=== PATIENT | female | born 1990 | race Two or more races ===

== ENCOUNTER 2021-04-27 14:38 | Emergency (ER) | payer SELFPAY ==
[~2021-04-27] VITALS: Ht 162.6 cm; Wt 61.7 kg
--- NOTE | 2021-04-27 14:41 | NUR ---
PT [id number] ACCOMPANIED BY PD PER EMS REPORT, PT WAS AT INTERSECTION, BYSTANDER CALLED 911. PT WAS NOT RESPONDING VERBALLY TO EMS AND PD. UPON ARRIVAL PT NODS TO BABSIC QUESTIONS, DOT NOT SPECIFY HER COMPLAINS AND NOT TELLING STAFF HER NAME. PLACED ON MONITOR. STABLE VITALS. AWAITING MD MCPHERSON.
--- NOTE | 2021-04-27 14:42 | NUR ---
DR HUANG AT BEDSIDE FOR EVAL.
[2021-04-27 15:51] LABS: CALCIUM, SERUM 9.3 mg/dL (8.5-10.1); CARBON DIOXIDE 23 mmol/L (21-32); CHLORIDE 103 mmol/L (98-107); CREATININE 0.6 mg/dL (0.6-1.3); GLUCOSE 98 mg/dL (74-106); POTASSIUM 3.3 mmol/L (3.5-5.1); SODIUM SERUM 135 mmol/L (136-145); UREA NITROGEN, BLOOD 10 mg/dL (7-18)
[2021-04-27 15:54] LABS: BASOPHILS % (AUTO) 0.3 % (0.0-2.0); EOSINOPHILS % (AUTO) 0.9 % (0.0-6.0); HEMATOCRIT 38 % (33-45); HEMOGLOBIN 12.6 g/dL (11.5-14.8); MEAN CORPUSCULAR HGB CONC 33 g/dl (31.0-36.0); MEAN CORPUSCULAR VOLUME 89 fL (82-100); MONOCYTES # (AUTO) 0.6 K/uL (0.1-1.30); MONOCYTES % (AUTO) 7.7 % (2.0-12.0); NEUTROPHILS # (AUTO) 6.2 K/uL (1.8-8.9); NEUTROPHILS % (AUTO) 78.1 % (43.0-81.0); PLATELET COUNT (AUTO) 257 K/uL (150-450); RED BLOOD CELL COUNT(AUTO) 4.26 MIL/uL (4.0-5.2); WHITE BLOOD COUNT (AUTO) 7.9 K/uL (4.3-11.0)
[2021-04-27 15:57] LABS: ALANINE AMINOTRANSFERASE 15 U/L (12-78); ALBUMIN 3.8 g/dL (3.4-5.0); ALKALINE PHOSPHATASE 74 U/L (46-116); ASPARTATE AMINOTRANSFERASE 15 U/L (15-37); BILIRUBIN,DIRECT 0.1 mg/dL (0.0-0.2); BILIRUBIN,TOTAL 0.4 mg/dL (0.2-1.0); TOTAL PROTEIN, SERUM 7.5 g/dL (6.4-8.2)
[2021-04-27 16:01] LABS: ACETAMINOPHEN 0 ug/ml (10-30); ALCOHOL, BLOOD < 3 mg/dL (0-0)
--- NOTE | 2021-04-27 17:13 | NUR ---
SEEN AND EVALUATED BY DR HUANG. MEDICALLY CLEARED FOR BOOKING. D/C TO PD IN STABLE CONDITION.
[2021-04-27 17:18] VITALS: BP 135/86
== END 2021-04-27 17:19 ==
LOC: ER 14:44 → EDBD 14:44 → ER 17:19
DX: Z02.89 Encounter for other administrative examinations (principal)
CPT/HCPCS: 36415; 80048-TC; 80076-TC; 82962-TC; 84702-TC; 85025-TC; G0480